=== PATIENT | male | born 1970 | race Caucasian/White ===

== ENCOUNTER 2018-05-29 09:03 | Outpatient (CLI) | payer BC, SELFPAY ==
[2018-05-29 10:38] LABS: ALT 32 U/L (12-78); AST 21 U/L (15-37); Alkaline Phosphatase 68 U/L (46-116); Anion Gap 9.6 mmol/L (3-11); BUN 15 mg/dL (7-18); CO2 29.4 mmol/L (21.0-32.0); CREATININE 0.98 mg/dL (0.70-1.30); Calcium 8.9 mg/dL (8.5-10.1); Chloride 105 mmol/L (98-107); Cholesterol 224 mg/dL (50-200); Glucose 94 mg/dL (70-100); HDL Cholesterol 61 mg/dL (40-60); LDL CHOLESTEROL 147 mg/dL (<100); Potassium 4.2 mmol/L (3.5-5.1); Sodium 144 mmol/L (136-145); Total Protein 7.1 g/dL (6.4-8.2); Triglyceride 90 mg/dL (30-150)
== END 2018-05-29 09:23 ==
PROVIDERS: PCP Family Medicine; Visit Provider Family Medicine
DX: Z00.00 Encounter for general adult medical examination without abnormal findings (principal); Z13.228 Encounter for screening for other metabolic disorders; Z13.220 Encounter for screening for lipoid disorders
CPT/HCPCS: 36415; 80053; 80061; 83721

== ENCOUNTER 2018-10-04 11:49 | Day surgery (SDC) | payer BC, SELFPAY ==
--- NOTE | 2018-10-04 07:05 | W.COLOREPORT ---
Date of service: 10/04/18 Time of Service: 13:26 Colonoscopy Report Date of procedure: 10/04/18 Pre-op diagnosis general: Colon Cancer Screening and Family history of colon Cancer Post-op diagnosis procedure note: same Procedure: Colonoscopy Surgeon: Lashonda Blanco Anesthesia proc note operative: other (General/ ASA 2/ Jena Burnham CRNA) Estimated blood loss (mL): 0 Pathology: none sent Complications: None Disposition: same day Indications: Mr. Mohr is a pleasant 47 year old male seen in the office for his first screening colonoscopy. He has a family history of colon cancer in his mother. She was 74 when she was diagnosed.Risks, benefits and complications have been reviewed. Complications include but are not limited to bleeding, pain, perforation, missed small lesion/polyp, sore throat, aspiration and adverse reaction to the medications. Questions were entertained and answered to their satisfaction and they wished to proceed. No guarantees were given or implied. Prep: Miralax/Dulcolax Procedure Start Time: 13:26 Procedure End Time: 13:53 Retraction Time: 17 minutes Findings: Normal colon Procedure Description: After informed consent was obtained the patient was taken to the procedure room and placed in a left decubitous position. Monitors were applied and a time out was done. The patients name, date of , procedure, allergies to medications and metal in their body was reviewed. The patient was then sedated. Once sedated and comfortable a rectal exam was done. External exam was normal. Internal exam revealed a normal sphincter tone and no palpable masses. His Prostate felt smooth. The scope was then introduced and retro-flexed. No internal hemorrhoids, polyps or masses were identified. The scope was then advanced to the cecum with difficulty due to a very tortuous colon. The TI and appendiceal orifice were identified. The prep was good. The scope was then slowly retracted over 17 minutes back into the rectum. There were no polyps, masses or diverticula noted throughout. The scope was removed and the patient was woken up and taken back to Same day surgery in stable condition. The patient tolerated the procedure well and there were no immediate complications. Follow up: The patient should follow up in 5 years unless they develop changes in bowel habits or other new gastrointestinal complaints.
--- NOTE | 2018-10-04 07:07 | W.PM.DSUDISC ---
Discharge Plan Disposition Patient Disposition: HOME Condition: Good Discharge Details Reason For Visit: Colon Cancer Screening Attending Provider: Lashonda Blanco Primary Care Provider: Neal Dixon Home Meds and New Rx's Prescriptions: Continued albuterol sulfate [ProAir HFA] 8.5 GM HFA aerosol inhaler 1 - 2 puff Inhalation Q4H PRN Qty: 2 RF: 6 Pulmicort Flexhaler 180 MCG aerosol powdr breath activated 360 mcg Inhalation BID 30 Days Qty: 30 RF: 11 Discontinued polyethylene glycol 3350 17 gram/dose powder 238 g PO ONCE Qty: 238 RF: 0 bisacodyl [Dulcolax (bisacodyl)] 5 mg tablet,delayed release (DR/EC) 5 mg PO ONCE Qty: 4 RF: 0 Discharge Instructions Instructions: Colonoscopy (GEN) Additional Instructions: Findings: Normal colonoscopy Follow up: 5 years due to your family history Please call if you develop: fevers >101.5 Nausea or Vomiting Abdominal pain that is not transient DAY SURGERY UNIT POST COLONOSCOPY INSTRUCTIONS 1. Because there will be medication in your system for the next 24 hours, you may feel a little sleepy. Your coordination will be affected. Therefore: a. Do not drive or operate dangerous equipment for 24 hours. b. Do not drink alcohol beverages for 24 hours (not even beer). c. Plan to go home and rest for the day. 2. Generally there are no restrictions on your activity after a day or so has gone by, but you may feel a bit fatigued for a few days. 3 After you arrive home you may have a light meal and return to a normal diet as you can tolerate it without feeling sick to your stomach. 4. After surgery, you may feel pain or discomfort. This should be only transient, but if it persists please contact your doctor. 5. If there are any questions regarding the findings of your procedure, please feel free to contact your doctor. 6. If you are unable to contact your doctor with a problem, contact the hospital at [phone]. 7. Continue all your regular medications unless directed otherwise. I understand the above instructions and have no questions. Signature of Patient or Responsible Adult Escort Date/Time Name of Responsible Adult Escort Signature of Nurse Date/Time Stand Alone Forms: Zoila Mcclellan (MARIA ESTHERU) Activity:: Activity as Tolerated Diet:: As Tolerated Discharge Orders Discharge Orders: Discharge Order (Routine); Ordered 10/04/18 Ordered By: Lashonda Blanco DS: Diagnosis Discharge Diagnosis (1) S/P colonoscopy: Status: Acute
[2018-10-04 12:22] VITALS: BP 127/83; PULSE 70; RESP 16; TEMP 36.5; O2SAT 98
[2018-10-04] MEDS: Lactated Ringers 1,000 ML 80 ML IV (12:34)
[2018-10-04 14:31] VITALS: BP 114/73; PULSE 62; RESP 16; TEMP 36.4; O2SAT 99
== END 2018-10-04 14:52 | disposition home or self-care (01) ==
LOC: SUR 12:00
PROVIDERS: PCP Family Medicine; Visit Provider Surgery
PROC: 0DJD8ZZ Inspection of Lower Intestinal Tract, Via Natural or Artificial Opening Endoscopic (ICD-10-PCS; CPT 45378; principal; 2018-10-04 13:15)
DX: Z12.11 Encounter for screening for malignant neoplasm of colon (principal); K63.89 Other specified diseases of intestine; Z80.0 Family history of malignant neoplasm of digestive organs
CPT/HCPCS: 45378

== ENCOUNTER 2019-12-27 08:14 | Outpatient (CLI) | payer BC, SELFPAY ==
[2019-12-29 12:15] LABS: Patient Race White; SARS-CoV-2 RNA Undetected (Undetected); SARS-CoV-2 Specimen Source Nasopharynx
== END 2019-12-27 08:34 ==
PROVIDERS: PCP Family Medicine; Visit Provider Family Medicine
DX: Z11.59 Encounter for screening for other viral diseases (principal)
CPT/HCPCS: U0003

== ENCOUNTER 2020-11-20 03:24 | Outpatient (CLI) | payer BC, SELFPAY ==
[2020-11-20 08:27] LABS: Hemoglobin A1C 5.1 % (<5.7)
[2020-11-20 08:37] LABS: Calculated LDL 119 mg/dL (<100); Cholesterol 195 mg/dL (<200); HDL Cholesterol 57 mg/dL (40-60); Triglyceride 97 mg/dL (<150)
== END 2020-11-20 03:25 | disposition home or self-care (01) ==
LOC: LBO 03:25
PROVIDERS: PCP Nurse Practitioner Family; Visit Provider Nurse Practitioner Family
DX: Z13.1 Encounter for screening for diabetes mellitus (principal); Z13.220 Encounter for screening for lipoid disorders
CPT/HCPCS: 36415; 80061; 83036

== ENCOUNTER 2024-02-02 04:32 | Outpatient (CLI) | payer BC, SELFPAY ==
[2024-02-02 09:49] LABS: Hemoglobin A1C 4.9 % (<5.7)
[2024-02-02 10:18] LABS: Calculated LDL 144 mg/dL (<100); Cholesterol 233 mg/dL (<200); HDL Cholesterol 64 mg/dL (40-60); Triglyceride 129 mg/dL (<150)
== END 2024-02-02 04:33 | disposition home or self-care (01) ==
LOC: LBO 04:32
PROVIDERS: PCP Nurse Practitioner Family; Visit Provider Nurse Practitioner Family
DX: Z13.1 Encounter for screening for diabetes mellitus (principal); Z13.220 Encounter for screening for lipoid disorders
CPT/HCPCS: 36415; 80061; 83036

== ENCOUNTER 2024-06-03 06:57 | Day surgery (SDC) | payer BC, SELFPAY ==
--- NOTE | 2024-06-02 19:03 | W.PM.DSUDISC ---
Date of service: 06/03/24 Discharge Plan Disposition Patient Disposition: Home Condition: Good Discharge Details Reason For Visit: screening colonoscopy Attending Provider: Joe Lambert Primary Care Provider: Antonio Casey Home Meds and New Rx's Prescriptions: Continued albuterol sulfate [ProAir HFA] 90 mcg/actuation HFA aerosol inhaler 1 - 2 puff Inhalation Q4H PRN Qty: 2 6RF Discontinued bisacodyl [Dulcolax (bisacodyl)] 5 mg tablet,delayed release (DR/EC) 5 mg PO ONCE Qty: 4 0RF Rx Instructions: Take per colonoscopy instructions provided by ordering providers office polyethylene glycol 3350 17 gram/dose powder 17 g PO ONCE Qty: 238 0RF Rx Instructions: Take per colonoscopy instructions provided by ordering providers office Discharge Instructions Additional Instructions: Joe, was very nice meeting you today, and I hope you feel well after the procedure. Everything went very smoothly. Your prep was excellent, and we could see everything totally fine. Your colonoscopy was totally normal. Based on your family history, I do recommend a 5-year interval for your screening colonoscopies. If anything changes, you have any questions, please do not hesitate to call 1. If tolerated, consume a soft, low fiber diet for 1-2 days. 2[address] Do not drive, drink alcohol, operate machinery, make critical decisions, or do activities that require coordination or balance for 24 hours. 3. Because air was put into your colon during the procedure, expelling air from your rectum (passing gas or farting) is normal. 4. You may not have a bowel movement for 1-3 days because of the colonoscopy prep. This is normal. 5. Go directly to the emergency room if you notice any of the following: Develop chills (warm to touch), or if you have a thermometer and your temperature is above 101 Difficulty breathing or difficultly swallowing Persistent vomiting Severe abdominal pain, other than gas cramps Severe chest pain Black, tarry stools Any bleeding ? exceeding one tablespoon 6. Call your physician if the site where your intravenous was started becomes red, swollen, painful, and warm to touch. 7. Your physician has reviewed your pre-procedure medications. Please continue to take those medications as previously ordered. You will be given specific information/education regarding any changes to your medications before leaving. Activity:: Activity as Tolerated Diet:: As Tolerated Discharge Orders Discharge Orders: Discharge Order (Routine); Ordered 06/02/24 Ordered By: Joe Lambert DS: Diagnosis Discharge Diagnosis (1) Encounter for screening colonoscopy: Status: Acute Asessment and Plan: Negative screening colonoscopy
--- NOTE | 2024-06-02 19:04 | W.COLOREPORT ---
Date of service: 06/03/24 Time of Service: 09:49 Colonoscopy Report Date of procedure: 06/03/24 Pre-op diagnosis general: screening colonsocopy Post-op diagnosis procedure note: other (Negative screening colonoscopy) Procedure: colonoscopy Surgeon: Joe Lambert Anesthesia Type: General:No Airway Estimated blood loss (mL): 0 Pathology: none sent Complications: None Disposition: same day Indications: Joe is a 53 year old man with a family history of colon cancer who needs a screening colonoscopy Prep: Miralax/Dulcolax Procedure Start Time: 09:30 Procedure End Time: 09:44 Retraction Time: 9 Findings: Negative screening colonoscopy Procedure Description: After the induction of anesthesia, and with the patient in left lateral decubitus position, I began by performing an external anorectal exam.? Perineum and skin were normal, as was the anal verge.? There was no evidence of external hemorrhoids.? Next, I performed a digital rectal exam.? I did not appreciate any abnormal findings.? Next, I advanced a colonoscope into the rectal vault.? I performed retroflexion.? This appeared normal.? Using insufflation, I then advanced the colonoscope beyond the rectal folds and into the sigmoid colon before advancing towards the cecum.? The quality of the prep was excellent.? The scope was noted to be in the cecum by identification of the ileocecal valve and appendiceal orifice.? I then began withdrawing the colonoscope using repeated irrigation as necessary for full evaluation of the colonic mucosa. ?Once the scope was withdrawn to the level of the rectum, great care was taken to examine portions of the rectal folds.? I saw no signs of tumors, polyps, or any other pathology. finally, the scope was withdrawn and the patient was brought to the same-day surgery recovery unit as the anesthetic wore off. ?The findings and instructions were shared with the patient prior to discharge. [place] Bowel Prep [place] Bowel Prep Right Colon: 2 Left Colon: 3 Transverse Colon: 3 Total Score: 8
[2024-06-03 07:11] VITALS: BP 141/95; PULSE 75; RESP 16; TEMP 36.1; O2SAT 99
[2024-06-03] MEDS: Lactated Ringers 1,000 ML 80 ML IV (07:20)
--- NOTE | 2024-06-03 07:21 | W.ANESPRE ---
General Info Date of Service Date Performed: 06/03/24 Height: 6 ft Weight: 90.4 kg Body Mass Index (BMI): 27.0 Surgical Procedure: Operation Date: 06/03/24 08:20 Proposed Procedure Side Surgeon p Colonoscopy Joe Lambert MD Meds Allergies and Home Medications Allergies Allergy/AdvReac Type Severity Reaction Status Date / Time No Known Allergies Allergy Verified 06/03/24 07:14 Home Medication ?Medication ?Instructions ?Recorded albuterol sulfate 90 mcg/actuation 1 - 2 puff inhalation Q4H PRN ##2 06/07/19 aerosol inhaler (ProAir HFA) Current Visit Medications: Current Medications Generic Name Dose Route Start Last Admin Trade Name Freq PRN Reason Stop Dose Admin Ringer's Solution 1,000 mls @ 80 mls/hr 06/03/24 06:00 06/03/24 07:20 IV 06/03/24 23:59 80 mls/hr INFUSION IBAN Administration IV Miscellaneous Supplies 1 each 06/03/24 06:00 Iv Access IV 06/03/24 23:59 DIRECTED IBAN Ondansetron HCl 4 mg 06/02/24 19:05 Ondansetron 4 Mg/2 Ml Vial IVP 07/02/24 19:04 Q4H PRN PRN Nausea / Vomiting Sodium Chloride 0 ml 06/03/24 06:00 Normal Saline Flush 10 Ml Syr IV 06/03/24 23:59 PRN PRN Sodium Chloride 0 ml 06/03/24 06:00 Normal Saline 10 Ml Vial IJ 06/03/24 23:59 DIRECTED PRN Sterile Water 0 ml 06/03/24 06:00 Water,Injection,Sterile 10 Ml Vial IJ 06/03/24 23:59 DIRECTED PRN PFSH Active Problems Active Problems: Problem Status Onset Code Encounter for screening colonoscopy Acute Z12.11 Asthma Chronic J45.909 Allergic rhinitis Chronic J30.9 Increased body mass index Chronic R63.8 Medical History Medical History Family history of colon cancer in mother Migraine in childhood Surgical History Surgical History S/P colonoscopy (~10/04/18) Arthroplasty of knee (~07/2009) Right knee arthroscopy w/ ACL reconstruction w/ hamstrings autpgraft, partial medial meniscectomy. Appendectomy (~1984) Tobacco Smoking/Tobacco Use Status: Never Passive smoking exposure: Yes Second hand exposure: Yes Alcohol Alcohol Intake: current Alcohol intake frequency: a few times a week Alcohol type: beer and hard liquor Substance Use Substance use: Never Substance use type: does not use Vital Signs and Lab Results Vital Signs Most Recent Vital Signs in EMR: Most Recent Vital Signs Temp Pulse Resp BP Pulse Ox 36.1 C L 75 16 141/95 H 99 06/03/24 07:11 06/03/24 07:11 06/03/24 07:11 06/03/24 07:11 06/03/24 07:11 Lab Results Blood Type / Crossmatch: No Data to Display Complete Blood Count: No Data to Display Complete Metabolic Panel: No Data to Display Liver Function Panel: No Data to Display Coagulation Panel: No Data to Display Cardiac Panel: No Data to Display Arterial Blood Gas: No Data to Display Venous Blood Gas: No Data to Display Pancreas Panel: No Data to Display Thyroid Panel: No Data to Display Infectious Disease: No Data to Display Blood Cultures: No Data to Display Toxicology Panel: No Data to Display Anesthesia Assessment and Plan Anesthesia History Personal History: No History of Anesthesia Complications Family History: No Family History of Anesthesia Complications Exercise Tolerance Exercise Tolerance: Metabolic Equivalents>4 Pertinent Negatives Pertinent Negatives: No Symptoms of GERD, No Major Pulmonary Symptoms or Complaints and No History of CVA/TIA Cardiac & Pulmonary Exam Cardiac Exam: Normal S1/S2 Heart Sounds Pulmonary Exam: Clear Bilateral Breath Sounds Implantable Cardiac Device Does patient have a Pacemaker or an ICD?: No Airway Exam Known Difficult Airway: No Mallampati Class: 2 Mouth Opening: Normal (> 3cm) Thyromental Distance: Greater than 3 cm Neck Range of Motion: Full ROM Neck Circumference: Normal Teeth Condition: Normal Dentition ASA Classification ASA Score: ASA 2 Emergency Case?: No NPO Status NPO Status: NPO Clears >2 hours, Solids >8 hours Anesthesia Plan Resuscitation Status: Full Code Anesthesia Technique: General Anesthesia Airway Planned: Natural Airway Monitors Used: Standard Monitors
[2024-06-03 08:47] VITALS: BMI 27.0
[2024-06-03 09:48] VITALS: BP 111/79; PULSE 82; RESP 17; TEMP 36; O2SAT 96
[2024-06-03 10:16] VITALS: BP 126/78; PULSE 71; RESP 20; TEMP 36.2; O2SAT 98
--- NOTE | 2024-06-03 12:05 | W.ANESPOSTOP ---
Postoperative Evaluation Date, Time and Location Date Performed: 06/03/24 Time Performed: 09:50 Patient Location: Day Surgery Unit Vital Signs Most Recent Imported Vital Signs: Most Recent Vital Signs Temp Pulse Resp BP Pulse Ox 36.2 C L 71 20 126/78 98 06/03/24 10:16 06/03/24 10:16 06/03/24 10:16 06/03/24 10:16 06/03/24 10:16 Pain Score Most Recent Pain Score: Most Recent Pain Score Pain Level 0 06/03/24 07:11 Assessment Mental Status: Awake (Alert & Oriented to Patient Baseline) Airway and Respiratory Function: Patent airway with normal (patient baseline) respiratory exam Cardiovascular Function: Hemodynamically Stable Hydration Status: Adequately Hydrated Nausea & Vomiting: No Nausea or Vomiting Pain: Pt. Denies Any Pain Peripheral Nerve Block: Patient did not receive a nerve block
== END 2024-06-03 10:26 | disposition home or self-care (01) ==
LOC: SUR 06:57
PROVIDERS: PCP Nurse Practitioner Family; Visit Provider Surgery
PROC: 0DJD8ZZ Inspection of Lower Intestinal Tract, Via Natural or Artificial Opening Endoscopic (ICD-10-PCS; CPT 45378; principal; 2024-06-03 08:15)
DX: Z12.11 Encounter for screening for malignant neoplasm of colon (principal); Z80.8 Family history of malignant neoplasm of other organs or systems
CPT/HCPCS: 45378; J2704